=== PATIENT | male | born 1985 | race Caucasian/White ===

== ENCOUNTER 2020-08-27 10:58 | Emergency (ER) | payer OTHER, SELFPAY ==
[2020-08-27 11:00] VITALS: BP 126/79; PULSE 78; RESP 20; TEMP 37.2; O2SAT 100; BMI 42.0
--- NOTE | 2020-08-27 11:33 | HMH.EDUTC ---
[facility] [place] Clinical Impression: Viral infection Disposition: Home, Self-Care Condition on Discharge: Good Instructions: White Blood Cell Count, With Differential, Platelet Count Additional Instructions: follow up with pcp on saturday if symptoms worsen or no improvement return or be seen in ed call for lab results bleeding precautions Referrals: Shira Gr [Primary Care Provider] - Time of Disposition: 12:27 Medical Decision Making - Sy Inquiry Pt receiving controlled substance: No Vital Signs: 08/27/20 11:00 Temperature 99.0 F Temperature Source Oral Pulse Rate [Left Brachial] 78 Respiratory Rate 20 Blood Pressure [Left Arm] 126/79 Blood Pressure Mean [Left Arm] 94 Blood Pressure Source [Left Arm] Automatic Cuff Blood Pressure Position [Left Arm] Sitting 02 Sat by Pulse Oximetry 100 Oxygen Delivery Method Room Air - Lab Data Lab Results 08/27/20 11:40: WBC 3.2 L, RBC 4.92, Hgb 15.2, Hct 44.7, MCV 90.8, MCH 30.8, MCHC 33.9, RDW 15.2, Plt Count 85 L, MPV 11.8 H, Neut % (Auto) 77.5, Lymph % (Auto) 17.5, Merrick % (Auto) 4.2, Eos % (Auto) 0.3, Baso % (Auto) 0.5, Neut # (Auto) 2.5, Lymph # (Auto) 0.6 L, Merrick # (Auto) 0.1, Eos # (Auto) 0.0, Baso # (Auto) 0.0 08/27/20 11:40: Sodium 139, Potassium 3.6, Chloride 102, Carbon Dioxide 29, Anion Gap 11.6, BUN 11, Creatinine 0.90, Estimated Creat Clear 110, Estimated GFR 98, Est GFR ( Amer) 118, Glucose 93, Calcium 8.3 L, Total Bilirubin 2.3 H, AST 79 H, ALT 74, Alkaline Phosphatase 103, Total Protein 7.3, Albumin 4.1, Globulin 3.2, Albumin/Globulin Ratio 1.3 08/27/20 11:40: Monoscreen Negative Result diagrams: 08/27/20 11:40 08/27/20 11:40 Orders (Tests/Meds): ORDERS Category Date Time Status Hepatitis Panel (4) Stat Lab 08/27/20 11:40 Received Urine Culture Stat Micro 08/27/20 11:34 Received - Physician Consults Physician Consulted: [email or web address] Time: 12:27 Reason -: Pt condition Comment/Response: discuss pt labs [facility] [place] - General Chief complaint: [facility] Stated complaint: urinary Time Seen by Provider: 08/27/20 11:34 Mode of Arrival: Ambulatory Source of Information: Patient Limitations: No Limitations Description of Symptoms (Recalled from Triage Doc. by RN): PATIENT C/O LEFT FLANK PAIN X 2 DAYS AND FEVER, DARK URINE, AND BURNING WITH URINATION THAT STARTED YESTERDAY HEENT Symptoms (Recalled from RN notes): No Resp Symptoms (Recalled from RN notes): No Skin Symptoms (Recalled from RN notes): No MS Symptoms (Recalled from RN notes): No Functional Status (Recalled from RN notes): WNL - History of Present Illness Provider Complaint: 34 yr old male presnets for left flank pain for 2 days with dark urine and burning with urination. pt states fever. no new sex partners and pain does not radiate. - Related Data Home Medications Medication Instructions Recorded Confirmed Amlodipine Besylate [Amlodipine 10 mg PO DAILY 08/27/20 08/27/20 10mg Tab] Omeprazole [Omeprazole 40mg 40 mg PO DAILY 08/27/20 08/27/20 Capsule] Sertraline HCl [Zoloft] 25 mg PO DAILY 08/27/20 08/27/20 Allergies Allergy/AdvReac Type Severity Reaction Status Date / Time Penicillins Allergy Intermediate Verified 02/28/18 17:38 - Worker's Comp Is this a Worker's Comp case?: No [facility] History - Hepatitis A Screen Drug use history?: No High risk sexual behaviors?: No History of sexually transmitted infection?: No Currently employed?: No Childcare worker?: No Do you have indoor plumbing?: Yes Do you have electricity?: Yes Attestation statement:: This patient has been screened for Hepatitis A risk factors. I have reviewed the patient's past medical history: Yes Laterality Cases: Bilateral: Myringotomy (Ear Tubes), Tonsillectomy Amputation: No Fractures: No - Social History Smoking Status: Never smoker Alcohol Intake: never Alcohol Intake Frequency:: holidays/special occasions only Substance Use Type: treva
[2020-08-27 11:55] LABS: Basophils % 0.5 % (0.1-2.0); Eosinophils % 0.3 % (0.1-12.0); Hematocrit 44.7 % (42.0-52.0); Hemoglobin 15.2 g/dL (14.1-18.0); Lymphocytes # 0.6 K/mm3 (0.7-4.5); Lymphocytes % 17.5 % (10-50); Mean Corpuscular HGB Conc 33.9 g/dL (31.8-35.4); Mean Corpuscular Hemoglobin 30.8 pg (27.0-31.2); Mean Corpuscular Volume 90.8 fl (80-94); Mean Platelet Volume 11.8 fl (7.4-10.4); Monocytes # 0.1 K/mm3 (0.1-1.0); Monocytes % 4.2 % (1.7-9.3); Neutrophils # 2.5 K/mm3 (1.8-7.8); Neutrophils % 77.5 % (37.0-80.0); Platelet Count 85 K/mm3 (142-424); Red Blood Count 4.92 M/mm3 (4.60-6.20); Red Cell Distribution Width 15.2 % (11.5-17.5); White Blood Count 3.2 K/mm3 (4.8-10.8)
[2020-08-27 11:57] LABS: Potassium 3.6 mmoL/L (3.5-5.1); Sodium 139 mmol/L (136-145)
[2020-08-27 11:58] LABS: Chloride 102 mmol/L (98-107)
[2020-08-27 12:00] LABS: Alanine Aminotransferase 74 U/L (12-78); Albumin Level 4.1 g/dl (3.5-5.0); Albumin/Globulin Ratio 1.3 (1.1-1.8); Alkaline Phosphatase 103 U/L (38-126); Anion Gap 11.6 mEq/L (5-15); Aspartate Amino Transferase 79 U/L (17-59); Bilirubin,Total 2.3 mg/dl (0.2-1.3); Blood Urea Nitrogen 11 mg/dl (9-20); Carbon Dioxide 29 mmol/L (22.0-30.0); Creatinine Clearance Estimated 110 mL/min (50-200); Estimated Glomerular Filt Rate 98 ml/min (>60); GFR (African American) 118 ML/MIN (>60); Globulin 3.2 g/dL (1.3-3.2); Total Protein,Serum 7.3 g/dl (6.3-8.2)
[2020-08-27 12:01] LABS: Calcium 8.3 mg/dl (8.4-10.2); Glucose 93 mg/dl (74-100)
[2020-08-27 12:21] LABS: Monoscreen (Rapid) Negative (Negative)
[2020-08-27 12:34] VITALS: BP 126/79; PULSE 78; RESP 20; TEMP 37.2; O2SAT 100
[2020-08-27 14:46] LABS: Apearance,Urine Clear (Clear); Color,Urine Dark Yellow (Yellow); Protein,Urine Trace (Negative); Specific Gravity, Urine 1.025 (1.005-1.030)
[2020-08-27 14:47] LABS: Bilirubin,Urine 1+ (Negative); Blood, Urine Negative (Negative); Glucose,Urine (UA) Negative (Negative); Ketones,Urine Negative (Negative); UTC Leukocyte Esterase,Urine Negative (Negative); UTC Nitrate,Urine Negative (Negative); Urobilinogen,Urine 1 EU/dl (0.2)
[2020-08-28 10:13] LABS: Hep A Ab, IgM Negative (Negative); Hepatitis B Core Antibody IgM Negative (Negative); Hepatitis B Surface Antigen Negative (Negative); Hepatitis C Antibody <0.1 s/co ratio (0.0-0.9)
== END 2020-08-27 12:38 | disposition home or self-care (01) ==
PROVIDERS: Emergency Provider Nurse Practitioner Family; PCP Nurse Practitioner Family
DX: B34.9 Viral infection, unspecified (principal)
CPT/HCPCS: 80053; 80074; 81003; 85025; 86318; 87086; 99202; G0463

== ENCOUNTER 2023-07-16 09:35 | Outpatient (CLI) | payer BC, SELFPAY ==
[2023-07-16 18:31] LABS: Basophils % 0.5 % (0.1-2.0); Eosinophils % 0.1 % (0.1-12.0); Hematocrit 44.9 % (42.0-52.0); Hemoglobin 14.8 g/dL (14.1-18.0); Lymphocytes # 0.4 K/mm3 (0.7-4.5); Lymphocytes % 6.8 % (10-50); Mean Corpuscular Hemoglobin 32.6 pg (27.0-31.2); Mean Corpuscular Volume 98.7 fl (80-94); Mean Platelet Volume 11.7 fl (7.4-10.4); Monocytes # 0.4 K/mm3 (0.1-1.0); Monocytes % 5.5 % (1.7-9.3); Neutrophils # 5.7 K/mm3 (1.8-7.8); Neutrophils % 87.1 % (37.0-80.0); Platelet Count 96 K/mm3 (142-424); Red Blood Count 4.55 M/mm3 (4.60-6.20); Red Cell Distribution Width 14.6 % (11.5-17.5); White Blood Count 6.6 K/mm3 (4.8-10.8)
[2023-07-16 18:36] LABS: MANUAL DIFFERENTIAL MANUAL DIFFERENTIAL (MANUAL DIFF)
[2023-07-16 18:40] LABS: Alanine Aminotransferase 42 U/L (12-78); Albumin Level 3.8 g/dl (3.5-5.0); Albumin/Globulin Ratio 1.4 (1.1-1.8); Alkaline Phosphatase 65 U/L (38-126); Amylase 49 U/L (30-110); Anion Gap 10.7 mEq/L (5-15); Aspartate Amino Transferase 41 U/L (17-59); Bilirubin,Total 1.9 mg/dl (0.2-1.3); Blood Urea Nitrogen 13 mg/dl (9-20); Calcium 8.7 mg/dl (8.4-10.2); Carbon Dioxide 28 mmol/L (22.0-30.0); Chloride 102 mmol/L (98-107); Estimated Glomerular Filt Rate 85 ml/min (>60); GFR (African American) 103 ML/MIN (>60); Globulin 2.8 g/dL (1.3-3.2); Glucose 102 mg/dl (74-100); Lipase 50 U/L (23-300); Potassium 3.7 mmoL/L (3.5-5.1); Sodium 137 mmol/L (136-145); Total Protein,Serum 6.6 g/dl (6.3-8.2)
[2023-07-16 19:14] LABS: Hemoglobin A1C 4.9 % (4.0-6.0)
[2023-07-16 19:56] LABS: Lymphocytes % 5 % (10-50); Monocytes % 6 % (2-9); Neutrophils % 79 % (42-76); Total Cells Counted 100
[2023-07-16 19:57] LABS: Platelet Estimate Slight Decrease; RBC Morphology Normal
== END 2023-07-16 23:59 | disposition home or self-care (01) ==
LOC: LAB.DROPOF 07-17 09:35
PROVIDERS: PCP Student in an Organized Health Care Education/Training Program; Visit Provider Student in an Organized Health Care Education/Training Program
DX: R50.9 Fever, unspecified (principal); M54.41 Lumbago with sciatica, right side
CPT/HCPCS: 80053; 82150; 83036; 83690; 85007; 85025; 87086